=== PATIENT | male | born 1955 ===

== ENCOUNTER 2024-07-08 07:49 | Inpatient (IN) | payer OTHER ==
[~2024-07-08] VITALS: Ht 182.9 cm; Wt 89.8 kg
[2024-07-08 08:31] VITALS: BP 146/90
[2024-07-08 09:39] LABS: ALBUMIN 3.9 gm/dL (3.4-5.0); BILIRUBIN TOTAL 1.15 mg/dL (0.3-1.2); CALCIUM 9.2 mg/dL (8.5-10.1); CREATININE SERUM 1.19 mg/dL (0.70-1.30); GFR 60.98; GLOBULINA 3.8 G/DL (2.4-3.5); POTASSIUM 3.81 mEq/L (3.5-5.1); TOTAL PROTEIN 7.7 gm/dL (6.4-8.2)
[2024-07-08 10:59] LABS: RH NEGATIVE
[2024-07-13] MEDS ORDERED: CEFOXITIN SODIUM 2,000 MG VIAL IV ONE (12:34)
[2024-07-13] MEDS ORDERED: CEFAZOLIN SODIUM 1,000 MG VIAL ONE (12:37)
[2024-07-13] MEDS ORDERED: LIDOCAINE HCL 1%/EPINEPHRINE 20ML VIAL IJ ONE (12:47)
[2024-07-13] MEDS ORDERED: KETOROLAC TROMETHAMINE 60 MG VIAL IM ONE (12:47)
[2024-07-13] MEDS ORDERED: BUPIVACAINE HCL/MPF 0.5% 30ML VIAL ONE (12:47)
[2024-07-13] MEDS ORDERED: POVIDONE-IODINE 118 ML BOTT TOP ONE (12:47)
[2024-07-13] MEDS ORDERED: VANCOMYCIN HCL 1,000 MG VIAL ONE (12:47)
[2024-07-13] MEDS ORDERED: TRANEXAMIC ACID 100MG/1ML (1000MG) AMPUL IV ONE (12:48)
[2024-07-13] MEDS ORDERED: GABAPENTIN 300 MG CAPSULE PO SCH (18:13)
[2024-07-13] MEDS ORDERED: OxyCODONE HCL 5 MG TABLET (ROXICODONE) PO PRN (18:15)
[2024-07-13] MEDS ORDERED: MORPHINE SULFATE 4 MG/ML CARTRIDGE IV PRN (18:15)
[2024-07-13] MEDS ORDERED: SODIUM CHLORIDE 0.45 % 1,000 ML IV SCH (18:15)
[2024-07-13] MEDS ORDERED: ONDANSETRON HCL 2 MG/ML VIAL IV PRN (18:15)
[2024-07-13 19:21] VITALS: BP 113/69; O2SAT 97
[2024-07-14] MEDS ORDERED: ACETAMINOPHEN 500 MG GEL..CAP PO SCH
[2024-07-14 00:19] VITALS: BP 115/69; O2SAT 100
[2024-07-14] MEDS ORDERED: CEFAZOLIN SODIUM 1,000 MG VIAL IV SCH (01:00)
[2024-07-14 06:30] LABS: HEMATOCRIT 37.5 % (39.0-48.0); HEMOGLOBIN 12.9 g/dL (13-16.00); MEAN CELL VOLUME 85.5 fL (80.0-100.00); MEAN CORPUSCULAR HEMOGLOBIN 29.4 pg (27.00-32.0); MEAN CORPUSCULAR HGB CONC 34.4 g/dl (32.0-36.0); PLATELET COUNT 238 K/uL (150-450); RED BLOOD COUNT 4.39 M/uL (4.00-6.00); RED CELL DISTRIBUTION WIDTH 13.9 % (11.5-14.5)
[2024-07-14] MEDS ORDERED: PERCOCET 5-3251 EACH PO (07:43)
[2024-07-14] MEDS ORDERED: DUI500 PO (07:43)
[2024-07-14] MEDS ORDERED: ELIQUIS2.5 MG PO (07:43)
[2024-07-14 08:42] VITALS: BP 109/64; O2SAT 100
[2024-07-14] MEDS ORDERED: APIXABAN 2.5 MG TABLET PO SCH (09:00)
[2024-07-14] MEDS ORDERED: SENNOSIDES 1 TAB TABLET PO SCH (09:00)
[2024-07-14 12:24] LABS: COVID-19 AG NEGATIVE (NEGATIVE)
[2024-07-14 16:31] VITALS: BP 116/67; O2SAT 95
[2024-07-15 01:06] VITALS: BP 113/60; O2SAT 95
[2024-07-15 06:59] LABS: HEMATOCRIT 34.5 % (39.0-48.0); HEMOGLOBIN 11.8 g/dL (13-16.00); MEAN CELL VOLUME 85.3 fL (80.0-100.00); MEAN CORPUSCULAR HEMOGLOBIN 29.1 pg (27.00-32.0); MEAN CORPUSCULAR HGB CONC 34.1 g/dl (32.0-36.0); PLATELET COUNT 211 K/uL (150-450); RED BLOOD COUNT 4.05 M/uL (4.00-6.00); RED CELL DISTRIBUTION WIDTH 14.3 % (11.5-14.5)
[2024-07-15 08:52] VITALS: BP 119/68; O2SAT 97
[2024-07-15] MEDS ORDERED: IRON FUM,PS/FOLIC ACID/VITC/B3 1 CAP CAPSULE PO SCH (09:00)
[2024-07-15 15:49] VITALS: BP 134/71; O2SAT 97
== END 2024-07-15 17:24 | disposition designated cancer center or children's hospital (05) | DRG 470 ==
LOC: O/R 07-13 05:30 → SURG 07-13 05:30 → CIR.AMB 07-13 07:24 → SURH 07-13 13:45 → CIR.AMB 07-13 13:45 → EDSTATUS 07-13 13:45 → SURG 07-13 16:27
PROVIDERS: ADMIT Orthopaedic Surgery; ATTEND Orthopaedic Surgery
PROC: 0MNN0ZZ Release Right Knee Bursa and Ligament, Open Approach (ICD-10-PCS; 2024-07-13)
PROC: 0SUC07Z Supplement Right Knee Joint with Autologous Tissue Substitute, Open Approach (ICD-10-PCS; 2024-07-13)
PROC: 0SRC0J9 Replacement of Right Knee Joint with Synthetic Substitute, Cemented, Open Approach (ICD-10-PCS; principal; 2024-07-13 13:45)
DX: M17.11 Unilateral primary osteoarthritis, right knee (principal); M22.11 Recurrent subluxation of patella, right knee